=== PATIENT | male | born 1970 | race Caucasian/White ===

== ENCOUNTER 2017-05-14 09:38 | Emergency (ER) | payer OTHER ==
[~2017-05-14] VITALS: Ht 188 cm; Wt 91.6 kg
[2017-05-14] MEDS ORDERED: losartan PO (09:48)
--- NOTE | 2017-05-14 09:51 | NUR ---
pt was evaluated by dr Sanchez. pt was d/c to home. d/c instructions given to the pt.
[2017-05-14 09:53] VITALS: BP 129/71
== END 2017-05-14 09:54 | disposition home or self-care (01) ==
LOC: ER 09:38
DX: R07.89 Other chest pain (principal); W01.0XXA Fall on same level from slipping, tripping and stumbling without subsequent striking against object, initial encounter; Y92.89 Other specified places as the place of occurrence of the external cause; Y93.89 Activity, other specified; Y99.8 Other external cause status
CPT/HCPCS: 99281; A4663